=== PATIENT | male | born 1955 | race Caucasian/White ===

== ENCOUNTER 2017-09-17 05:34 | Day surgery (SDC) | payer OTHER ==
[~2017-09-17] VITALS: Ht 188 cm; Wt 85.0 kg
[~2017-09-17 05:34] MED LIST: DIPH25CA61 PO; PANT40TA5 PO
[2017-09-17] MEDS ORDERED: LACTATED RINGERS 1,000 ML IV SCH (06:06)
[2017-09-17 06:20] VITALS: BP 116/83
[2017-09-17] MEDS ORDERED: EPINEPHRINE 1 MG/ML, 1ML ONE (06:59)
[2017-09-17] MEDS ORDERED: BUPIVACAINE 0.25% ONE (06:59)
[2017-09-17] MEDS ORDERED: LIDOCAINE-MPF 2% ,5ML ONE (07:05)
[2017-09-17] MEDS ORDERED: ROCURONIUM 10MG/ML,5ML ONE (07:05)
[2017-09-17] MEDS ORDERED: PROPOFOL 10 MG/ML, 20ML ONE (07:05)
[2017-09-17] MEDS ORDERED: MIDAZOLAM 1 MG/ML, 2ML ONE (07:27)
[2017-09-17] MEDS ORDERED: FENTANYL PF 100 MCG/2ML ONE (07:34)
[2017-09-17] MEDS ORDERED: CEFOTETAN PMX 2GM/50ML 50 ML ONE (07:34)
[2017-09-17] MEDS ORDERED: DEXAMETHASONE 4 MG/ML, 1ML ONE (07:43)
[2017-09-17] MEDS ORDERED: BUPIVACAINE/PF-EPI 0.25% 1:200K INFIL ONE (07:49)
[2017-09-17] MEDS ORDERED: MORPHINE SULFATE 4 MG/ML, 1ML IVPush PRN (08:00)
[2017-09-17] MEDS ORDERED: MEPERIDINE/PF 25MG/0.5ML IVPush PRN (08:00)
[2017-09-17] MEDS ORDERED: EPHEDRINE 50 MG/ML, 1ML IVPush PRN (08:00)
[2017-09-17] MEDS ORDERED: OXYcodone 5 MG/5 ML ORAL.SOL UDC PO PRN (08:00)
[2017-09-17] MEDS ORDERED: ALBUTEROL SULFATE 2.5 MG/3 ML NPPB PRN (08:00)
[2017-09-17] MEDS ORDERED: FENTANYL PF 100 MCG/2ML IV PRN (08:00)
[2017-09-17] MEDS ORDERED: LABETALOL 5MG/ML, 20ML IV PRN (08:00)
[2017-09-17] MEDS ORDERED: ACETAMINOPHEN 325 MG TABLET PO PRN (08:00)
[2017-09-17] MEDS ORDERED: hydrALAzine 20 MG/ML, 1ML IV PRN (08:00)
[2017-09-17] MEDS ORDERED: PROMETHAZINE 25 MG/ML, 1ML IV PRN (08:00)
[2017-09-17] MEDS ORDERED: METOPROLOL 1 MG/ML, 5ML IV PRN (08:00)
[2017-09-17] MEDS ORDERED: NEOSTIGMINE 1 MG/ML, 10ML ONE (08:41)
[2017-09-17] MEDS ORDERED: NEOSPORIN OINT, 15GM ONE (08:41)
[2017-09-17] MEDS ORDERED: ONDANSETRON 2MG/ML, 2ML ONE (08:41)
[2017-09-17] MEDS ORDERED: GLYCOPYRROLATE 0.4 MG/2 ML, 2ML ONE (08:42)
== END 2017-09-17 11:00 ==
LOC: OUT 05:34
PROVIDERS: ATTEND Colon & Rectal Surgery
DX: K60.3 Anal fistula (principal); K63.5 Polyp of colon; D12.5 Benign neoplasm of sigmoid colon; K60.2 Anal fissure, unspecified; I25.2 Old myocardial infarction; Z86.19 Personal history of other infectious and parasitic diseases; Z87.891 Personal history of nicotine dependence; Z88.5 Allergy status to narcotic agent
CPT/HCPCS: 45380; 45385; 46200; 88305; 93005; J0171; J1100; J2250; J2405; J2704; J2710; J3010; J3490; J7120; S0074